=== PATIENT | female | born 1935 | race Caucasian/White ===

== ENCOUNTER 2016-07-25 12:19 | Inpatient (IN) | payer MEDICARE, OTHER ==
--- NOTE | ~2016-07-25 | HP ---
History And Physical [address] [place]. [address] NAME: ADWOA CARSON : 37 STATUS : ADM IN [facility]#: [id number] AGE: 80 ADM/REG DATE : 07/25/16 MR#: [id number] REPORT SERV DATE: 07/25/16 DICTATED BY: ARTURO PEARCE JR. DATE: 07/25/16 REPORT STATUS : Draft TRANSCRIBED BY: MODRubina DATE: 07/25/16 DATE OF ADMISSION: 07/25/[address] [facility] TECHNICAL DEVELOPER: Dr. Gagandeep Valdez. EP PHYSICIAN: Dr. Zeeshan Moreno. CHIEF COMPLAINT: Chest pain, shortness of breath, new left pneumothorax, status post permanent pacemaker insertion yesterday morning. HISTORY OF PRESENT ILLNESS: A 80-year-old white female with recent diagnosis of sick sinus syndrome in the setting of paroxysmal atrial fibrillation, chronic left bundle-branch block, hypertension, chronic back pain (Pain Clinic), chronic Coumadin anticoagulation with INR approximately 2.3 yesterday. No complications from pacemaker insertion yesterday morning. Postprocedure, chest x-ray showed pneumothorax, but last night the patient had some left lateral chest pain and shortness of breath, which intensified this morning and she came to the emergency room, where new pneumothorax was present on the left. Pacemaker pocket looks fine. Hypertensive. PAST MEDICAL HISTORY: See previous H and P. MEDICATION: List reviewed. ALLERGIES: LIST REVIEWED. SOCIAL HISTORY: Chronic morphine administered by pain clinic for chronic back pain etc. No illicit drugs. FAMILY HISTORY: Noncontributory. PHYSICAL EXAMINATION: VITAL SIGNS: Initial blood pressure 229/105, pulse is 82 and regular, respirations 24, afebrile. HEENT: No xanthelasma. NECK: No JVD at 30 degrees, no thyromegaly, no carotid bruit. LUNGS: Clear to auscultation and percussion. COR: No thrills, heaves, normal S1, S2. No gallop. No rub. Grade 1 systolic murmur. ABD: Soft, nontender, no hepatosplenomegaly, no mass. EXT: Without edema or pulse deficit. MS: Back without spine or costovertebral angle tenderness. NEURO: Symmetric findings. IMPRESSION: New left pneumothorax with shortness of breath and left lateral chest pain. Hypertension. Sick sinus syndrome with insertion of permanent pacemaker yesterday morning with initial postprocedure chest x-ray showing no pneumothorax at that time. History And Physical [address] [place]. [address] NAME: ADWOA CARSON : 37 STATUS : ADM IN PAT#: [id number] AGE: 80 ADM/REG DATE : 07/25/16 MR#: [id number] REPORT SERV DATE: 07/25/16 DICTATED BY: ARTURO PEARCE JR. DATE: 07/25/16 REPORT STATUS : Draft TRANSCRIBED BY: KANDACE DATE: 07/25/16 PLAN: Discussed with Dr. Moreno. We will consult Dr. Ny, Interventional Radiology to consider small left chest tube drainage of pneumo if he is willing to accept the current INR, which is pending at the time of dictation. Suspect there will be therapeutic range since it was approximately 2.3 yesterday. Monitor bed. Provide adequate analgesia and treat hypertension. TOLU/KANDACE Arturo Pearce Jr., M.D. / [id number] CC: Cassie Holley M.D.
--- NOTE | ~2016-07-25 | DS ---
Discharge Summary [facility] [address] [place] [place]. [address] NAME: ADWOA CARSON : 37 STATUS : DIS IN PAT#: [id number] AGE: 80 ADM/REG DATE : 07/25/16 MR#: [id number] REPORT SERV DATE: 08/09/16 DICTATED BY: GAGANDEEP CARDENAS DATE: 08/08/16 REPORT STATUS : Draft TRANSCRIBED BY: KANDACE DATE: 08/08/16 Data Collection from hospitalization DISCHARGE DIAGNOSES: 1. Pneumothorax. 2. Paroxysmal atrial fibrillation. 3. Sick sinus syndrome. 4. Hypertension. CONSULTATIONS: None. PROCEDURES PERFORMED: 1. CT-guided chest tube placement, 07/25/2016. 2. CT scan of the chest without contrast, 07/27/2016. 3. CTA of the chest, 07/28/2016. MEDICATIONS: Tenormin 50 mg twice a day, QVAR two puffs via inhaler twice a day, vitamin D3 2000 units every morning, Catapres 0.05-0.1 mg twice a day as needed, Bentyl 10 mg daily as needed, Cardura 0.5 mg at bedtime as needed, flecainide as instructed, fluorometholone one drop twice a day as needed, Apresoline as instructed, Dilaudid 2 mg every four hours as needed for three days, Prevacid 30 mg twice a day, Ativan 1 mg four times a day as needed, Cozaar 25 mg twice a day, MS Contin 15 mg every 12 hours as needed, Bactroban nasal ointment one application nasally twice a day for five days, Zofran 8 mg every six hours as needed, MiraLAX powder 9 g every morning, Systane solution one drop twice a day as needed, Xopenex two puffs via inhaler four times a day as needed, Jantoven 2 mg every 48 hours with supper alternating with 3 mg every 48 hours with supper. CONDITION AT DISCHARGE: Stable. DISPOSITION: The patient was discharged home on a regular diet with activities as instructed. She would follow up with me as scheduled. HOSPITAL COURSE: This is a 80-year-old female who had a recent diagnosis of sick sinus syndrome in the setting of paroxysmal atrial fibrillation, chronic left bundle-branch block, hypertension, and chronic back pain - seen in the pain clinic, chronic Coumadin anticoagulation with INR approximately 2.3 on the day prior to admission. She had no complications from pacemaker insertion, which had been performed the day prior to this admission. Postprocedure, chest x-ray showed no pneumothorax. During the night, she developed some left lateral chest pain and shortness of breath, which intensified on the morning of this admission and she came to the emergency room. She was found to have a new pneumothorax on the left. Pacemaker pocket looks fine. She was hypertensive. She was admitted to the hospital at this time for further evaluation and treatment. Upon admission, it was felt that she may need to undergo left chest tube drainage of pneumothorax. She underwent CT-guided chest tube insertion. The following day, she did complain of some left-sided chest pain that was severe and pleuritic. Her lungs were clear bilaterally. Coumadin was on hold. Dr. Zeeshan Moreno saw the patient. She was having significant pain. Dilaudid was going to be used. The patient is in pain management. On Discharge Summary [address] [address] NAME: ADWOA CARSON : 37 STATUS : DIS IN PAT#: [id number] AGE: 80 ADM/REG DATE : 07/25/16 MR#: [id number] REPORT SERV DATE: 08/09/16 DICTATED BY: GAGANDEEP CARDENAS DATE: 08/08/16 REPORT STATUS : Draft TRANSCRIBED BY: KANDACE DATE: 08/08/16 the , she still complained of pain in the left shoulder and at the chest tube site. A CTA of the chest was performed. She does have chronic pain on pain management. She has long-standing hypertension. She had worsening control secondary to pain issues. She does have multiple drug allergies. Atenolol was increased. Hydralazine was added. On 07/28/2016, blood pressure was elevated. There was no further pneumothorax. Over the next couple of days, she continued to do well. She still had multiple complaints. Dulcolax was given for constipation. Hydralazine dose was increased. Discharge planning was performed. On 07/30/2016, her blood pressure had decreased. She had no chest pain. Her lungs were clear. Discharge instructions were given. Due to her improved and stable condition, she was discharged home with the above-stated instructions. Information collected by: Masha Villanueva I submit the above information as my discharge summary. TG/MODL Gagandeep Cardenas M.D. / [id number] CC: [place] Azevedo M.D.
[~2016-07-25 12:19] MED LIST: ACCO20 PO; ACCUNEB INH; ALBUTEROL; ASAB PO; ATEN25 PO; ATEN50 PO; ATV1 PO; BENTYL10 PO; CARDU2 PO; CARDURA1 MG PO; CAT1 PO; CYANO1000T PO; DEMADEX5 MG PO; DIL2TAB PO; DIOV160 PO; DIOVAN320 MG PO; DSS PO; DULERA; ELIQUIS 5 MG TAB5 MG PO; ESTRACE VAGIN42.5 GM V; FIORICET OR; FIORICET PO; FLAG500TAB PO; JANTOVEN3 MG PO; L20 PO; LEVAQUIN750 MG PO; LEVSINTAB PO; LIPITOR40 PO; LORTAB 5 PO; MIRALAX POWDER1 PKT PO; MIRALAXPKT PO; MSCONT15 PO; MULTIPLE VIT PO; NORCO1 TA1 PO; OMNICEF300 PO; P20 PO; PERI-COLACE1 TAB PO; PREV15 PO; PREV30 PO; PROTONIX PO; PROVENTSOL INH; Q VAR INH; QVAR; QVAR 80 MCG80 MCG INH; QVAR80 MCG INH; SINGULAIR1 PO; SPIRO25 PO; SYMBICORT 160/41 INH INH; SYSTANE OPH; TAMBO50 PO; ULTRAM50 PO; VERELAN120 MG PO; VERELANPM1 PO; VITAMIN D1000 UNI1 PO; VITAMIN D31000 UNIT PO; XOPEN0.5ML INH; XOPENEX HFA INH; ZOFRAN8 PO; [UNRECOGNIZED DRUG - OTHER]
[2016-07-25 12:47] LABS: BASOPHILS 0.1 %; BASOPHILS ABSOLUTE 0.01 10/3/uL (0.0-0.16); EOSINOPHILS 0.4 %; EOSINOPHILS ABSOLUTE 0.03 10/3/uL (0.0-0.53); HEMATOCRIT 35.2 % (36.0-48.0); HEMOGLOBIN 11.9 g/dL (12.0-16.0); IMMATURE GRANULOCYTES 0.1 %; IMMATURE GRANULOCYTES ABSOLUTE 0.01 10/3/uL (0.0-0.11); LYMPHOCYTES 8.5 %; LYMPHOCYTES ABSOLUTE 0.66 10/3/uL (0.67-4.30); MEAN CORPUS HGB CONC 33.8 g/dL (32.0-36.0); MEAN CORPUSCULAR HEMOGLOB 30.8 pg (26.0-34.0); MEAN CORPUSCULAR VOLUME 91.2 fL (80-100); MEAN PLATELET VOLUME 9.2 fL (9.2-13.0); MONOCYTES 9.9 %; MONOCYTES ABSOLUTE 0.77 10/3/uL (0.21-1.20); NEUTROPHILS ABSOLUTE 6.29 10/3/uL (2.02-8.40); PLATELET COUNT 170 10/3/uL (150-400); RBC DISTRIBUTION WIDTH 15.9 % (12.0-16.0); RED CELL COUNT 3.86 10/6/uL (4.0-5.6)
[2016-07-25 12:49] LABS: ER CBC TAT 0 Hrs 05 Mins; MANUAL DIFF NO %; WHITE BLOOD CELLS 7.8 10/3/uL (4.5-10.5)
[2016-07-25 12:54] LABS: INTERNATIONAL NORMAL RATI 2.2 UNITS (-); PARTIAL THROMBO TIME 33.7 SEC (22.5-37.2); PROTIME (NOT ORD) 23.9 SEC (12.0-14.5)
[2016-07-25 13:04] LABS: BUN (BLOOD UREA NITROGEN) 11 MG/DL (6-23); CHEST PAIN PROFILE TAT 0 Hrs 20 Mins; CHLORIDE, SERUM 96 MMOL/L (96-112); CO2 (CARBON DIOXIDE) 30 MMOL/L (24-34); CREATININE 0.77 MG/DL (0.55-1.02); GFR AFRICAN AMERICAN 85 ML/MIN (>=60); GFR NON AFRICAN AMERICAN 73 ML/MIN (>=60); GLUCOSE, SERUM 100 MG/DL (60-99); POTASSIUM, SERUM 4.7 MMOL/L (3.5-5.3); SODIUM, SERUM 132 MMOL/L (135-148); TROPONIN I 0.06 NG/ML (<0.05)
[2016-07-25] MEDS ORDERED: PREV30 PO (13:12)
[2016-07-25] MEDS ORDERED: ATEN50 PO (13:13)
[2016-07-25] MEDS ORDERED: FLECAINIDE50 MG PO ×2 (13:13)
[2016-07-25] MEDS ORDERED: JANTOVEN3 MG PO (13:14)
[2016-07-25] MEDS ORDERED: JANTOVEN2 MG PO (13:15)
[2016-07-25] MEDS ORDERED: VITAMIN D31000 UNIT PO (13:15)
[2016-07-25] MEDS ORDERED: BENTYL10 PO (13:16)
[2016-07-25] MEDS ORDERED: ZOFRAN8 PO (13:16)
[2016-07-25] MEDS ORDERED: ATV1 PO (13:16)
[2016-07-25] MEDS ORDERED: CAT1 PO (13:17)
[2016-07-25] MEDS ORDERED: DIL2TAB PO (13:21)
[2016-07-25] MEDS ORDERED: MSCONT15 PO (13:23)
[2016-07-25] MEDS ORDERED: CARDURA1 MG PO (13:25)
[2016-07-25] MEDS ORDERED: QVAR80 MCG INH (13:26)
[2016-07-25] MEDS ORDERED: XOPENEX HFA INH (13:27)
[2016-07-25] MEDS ORDERED: MIRALAX POWDER1 PKT PO (13:27)
[2016-07-25] MEDS ORDERED: BACTRONASA NAS (13:29)
[2016-07-25] MEDS ORDERED: FML OPH SUSP5 ML OPH (13:31)
[2016-07-25] MEDS ORDERED: SYSTANE OPH (13:34)
[2016-07-26 05:16] LABS: BASOPHILS 0.6 %; BASOPHILS ABSOLUTE 0.02 10/3/uL (0.0-0.16); EOSINOPHILS 0.9 %; EOSINOPHILS ABSOLUTE 0.03 10/3/uL (0.0-0.53); HEMOGLOBIN 9.9 g/dL (12.0-16.0); IMMATURE GRANULOCYTES 0.3 %; IMMATURE GRANULOCYTES ABSOLUTE 0.01 10/3/uL (0.0-0.11); LYMPHOCYTES 13.4 %; LYMPHOCYTES ABSOLUTE 0.45 10/3/uL (0.67-4.30); MEAN CORPUS HGB CONC 33.1 g/dL (32.0-36.0); MEAN CORPUSCULAR HEMOGLOB 30.2 pg (26.0-34.0); MEAN CORPUSCULAR VOLUME 91.2 fL (80-100); MEAN PLATELET VOLUME 9.7 fL (9.2-13.0); NEUTROPHILS 75.8 %; NEUTROPHILS ABSOLUTE 2.54 10/3/uL (2.02-8.40); RBC DISTRIBUTION WIDTH 15.5 % (12.0-16.0); RED CELL COUNT 3.28 10/6/uL (4.0-5.6)
[2016-07-26 05:19] LABS: HEMATOCRIT 29.9 % (36.0-48.0); PLATELET COUNT 88 10/3/uL (150-400); WHITE BLOOD CELLS 3.4 10/3/uL (4.5-10.5)
[2016-07-26 05:21] LABS: MANUAL DIFF NO %
[2016-07-26 05:25] LABS: INTERNATIONAL NORMAL RATI 1.9 UNITS (-); PROTIME (NOT ORD) 21.5 SEC (12.0-14.5)
[2016-07-26 13:14] LABS: BASOPHILS 0.3 %; BASOPHILS ABSOLUTE 0.01 10/3/uL (0.0-0.16); EOSINOPHILS 1.2 %; EOSINOPHILS ABSOLUTE 0.04 10/3/uL (0.0-0.53); HEMOGLOBIN 9.8 g/dL (12.0-16.0); IMMATURE GRANULOCYTES 0.3 %; IMMATURE GRANULOCYTES ABSOLUTE 0.01 10/3/uL (0.0-0.11); LYMPHOCYTES 12.3 %; LYMPHOCYTES ABSOLUTE 0.42 10/3/uL (0.67-4.30); MEAN CORPUS HGB CONC 33.8 g/dL (32.0-36.0); MEAN CORPUSCULAR HEMOGLOB 30.6 pg (26.0-34.0); MEAN CORPUSCULAR VOLUME 90.6 fL (80-100); MEAN PLATELET VOLUME 9.5 fL (9.2-13.0); MONOCYTES ABSOLUTE 0.41 10/3/uL (0.21-1.20); NEUTROPHILS 73.9 %; NEUTROPHILS ABSOLUTE 2.52 10/3/uL (2.02-8.40); RBC DISTRIBUTION WIDTH 15.7 % (12.0-16.0); WHITE BLOOD CELLS 3.4 10/3/uL (4.5-10.5)
[2016-07-26 13:21] LABS: MANUAL DIFF NO %; PLATELET COUNT 133 10/3/uL (150-400)
[2016-07-27 00:35] LABS: BASOPHILS 0.9 %; BASOPHILS ABSOLUTE 0.03 10/3/uL (0.0-0.16); EOSINOPHILS 2.4 %; EOSINOPHILS ABSOLUTE 0.08 10/3/uL (0.0-0.53); LYMPHOCYTES 17.7 %; LYMPHOCYTES ABSOLUTE 0.58 10/3/uL (0.67-4.30); MEAN CORPUS HGB CONC 33.2 g/dL (32.0-36.0); MEAN CORPUSCULAR HEMOGLOB 30.4 pg (26.0-34.0); MEAN CORPUSCULAR VOLUME 91.4 fL (80-100); MEAN PLATELET VOLUME 9.9 fL (9.2-13.0); MONOCYTES 13.4 %; MONOCYTES ABSOLUTE 0.44 10/3/uL (0.21-1.20); NEUTROPHILS 65.6 %; NEUTROPHILS ABSOLUTE 2.15 10/3/uL (2.02-8.40); PLATELET COUNT 146 10/3/uL (150-400); RBC DISTRIBUTION WIDTH 15.5 % (12.0-16.0); RED CELL COUNT 3.62 10/6/uL (4.0-5.6); WHITE BLOOD CELLS 3.3 10/3/uL (4.5-10.5)
[2016-07-27 00:37] LABS: HEMATOCRIT 33.1 % (36.0-48.0); MANUAL DIFF NO %
[2016-07-27 06:35] LABS: BASOPHILS 0.9 %; BASOPHILS ABSOLUTE 0.03 10/3/uL (0.0-0.16); EOSINOPHILS 2.7 %; EOSINOPHILS ABSOLUTE 0.09 10/3/uL (0.0-0.53); HEMOGLOBIN 10.4 g/dL (12.0-16.0); IMMATURE GRANULOCYTES 0.3 %; IMMATURE GRANULOCYTES ABSOLUTE 0.01 10/3/uL (0.0-0.11); LYMPHOCYTES 16.5 %; LYMPHOCYTES ABSOLUTE 0.56 10/3/uL (0.67-4.30); MEAN CORPUS HGB CONC 32.5 g/dL (32.0-36.0); MEAN CORPUSCULAR VOLUME 92.2 fL (80-100); MEAN PLATELET VOLUME 10.1 fL (9.2-13.0); MONOCYTES 19.2 %; MONOCYTES ABSOLUTE 0.65 10/3/uL (0.21-1.20); NEUTROPHILS 60.4 %; NEUTROPHILS ABSOLUTE 2.05 10/3/uL (2.02-8.40); PLATELET COUNT 134 10/3/uL (150-400); RBC DISTRIBUTION WIDTH 15.7 % (12.0-16.0); RED CELL COUNT 3.47 10/6/uL (4.0-5.6); WHITE BLOOD CELLS 3.4 10/3/uL (4.5-10.5)
[2016-07-27 06:41] LABS: MANUAL DIFF NO %
[2016-07-27 06:50] LABS: BUN (BLOOD UREA NITROGEN) 10 MG/DL (6-23); CHLORIDE, SERUM 98 MMOL/L (96-112); CO2 (CARBON DIOXIDE) 26 MMOL/L (24-34); CREATININE 0.68 MG/DL (0.55-1.02); GFR AFRICAN AMERICAN 96 ML/MIN (>=60); GFR NON AFRICAN AMERICAN 83 ML/MIN (>=60); GLUCOSE, SERUM 84 MG/DL (60-99); POTASSIUM, SERUM 4.1 MMOL/L (3.5-5.3); SODIUM, SERUM 131 MMOL/L (135-148)
[2016-07-28 06:26] LABS: HEMATOCRIT 29.6 % (36.0-48.0); HEMOGLOBIN 9.9 g/dL (12.0-16.0); MEAN CORPUS HGB CONC 33.4 g/dL (32.0-36.0); MEAN CORPUSCULAR HEMOGLOB 29.9 pg (26.0-34.0); PLATELET COUNT 127 10/3/uL (150-400); RBC DISTRIBUTION WIDTH 15.6 % (12.0-16.0); RED CELL COUNT 3.31 10/6/uL (4.0-5.6); WHITE BLOOD CELLS 2.8 10/3/uL (4.5-10.5)
[2016-07-28 06:30] LABS: MANUAL DIFF YES %; MEAN CORPUSCULAR VOLUME 89.4 fL (80-100)
[2016-07-28 07:01] LABS: POTASSIUM, SERUM 3.9 MMOL/L (3.5-5.3); SODIUM, SERUM 127 MMOL/L (135-148)
[2016-07-28 07:14] LABS: BUN (BLOOD UREA NITROGEN) 13 MG/DL (6-23); CALCIUM, SERUM 9.1 MG/DL (8.5-10.4); CHLORIDE, SERUM 92 MMOL/L (96-112); CO2 (CARBON DIOXIDE) 26 MMOL/L (24-34); CREATININE 0.99 MG/DL (0.55-1.02); GFR AFRICAN AMERICAN 63 ML/MIN (>=60); GFR NON AFRICAN AMERICAN 54 ML/MIN (>=60); GLUCOSE, SERUM 112 MG/DL (60-99)
[2016-07-28 07:23] LABS: LYMPHOCYTES 17 %; LYMPHOCYTES ABSOLUTE (CALC) 0.48 10/3/uL (0.67-4.30); MONOCYTES 10 %; MONOCYTES ABSOLUTE (CALC) 0.28 10/3/uL (0.21-1.20); NEUTROPHILS ABSOLUTE (CALC) 2.04 10/3/uL (2.02-8.40); PLATELET ESTIMATE SLT DEC (ADEQUATE); RBC MORPHOLOGY NORM (NORMAL); SEGMENTED NEUTROPHIL (0) 73 %; TOTAL NUCLEATED CELLS 100
[2016-07-29 08:47] LABS: INTERNATIONAL NORMAL RATI 1.6 UNITS (-); PROTIME (NOT ORD) 18.7 SEC (12.0-14.5)
[2016-07-30 04:03] LABS: CALCIUM, SERUM 8.6 MG/DL (8.5-10.4); CHLORIDE, SERUM 96 MMOL/L (96-112); CO2 (CARBON DIOXIDE) 29 MMOL/L (24-34); CREATININE 0.66 MG/DL (0.55-1.02); GFR AFRICAN AMERICAN 97 ML/MIN (>=60); GFR NON AFRICAN AMERICAN 84 ML/MIN (>=60); GLUCOSE, SERUM 98 MG/DL (60-99); POTASSIUM, SERUM 3.9 MMOL/L (3.5-5.3); SODIUM, SERUM 130 MMOL/L (135-148)
[2016-07-30 04:05] LABS: BUN (BLOOD UREA NITROGEN) 8 MG/DL (6-23)
[2016-07-30 04:14] LABS: INTERNATIONAL NORMAL RATI 2.4 UNITS (-); PROTIME (NOT ORD) 25.8 SEC (12.0-14.5)
[2016-07-30] MEDS ORDERED: COZ25 PO (13:01)
[2016-07-30] MEDS ORDERED: APRES25 (13:04)
== END 2016-07-30 13:55 | disposition home or self-care (01) | DRG 201 ==
LOC: ER 12:19 → 6NO 14:22
PROVIDERS: Emergency Medicine; Internal Medicine; Internal Medicine Cardiovascular Disease
PROC: 0W9B30Z Drainage of Left Pleural Cavity with Drainage Device, Percutaneous Approach (ICD-10-PCS; principal; 2016-07-25)
PROC: 30233K1 Transfusion of Nonautologous Frozen Plasma into Peripheral Vein, Percutaneous Approach (ICD-10-PCS; 2016-07-25)
PROC: 0JH606Z Insertion of Pacemaker, Dual Chamber into Chest Subcutaneous Tissue and Fascia, Open Approach (ICD-10-PCS; 2016-07-25)
PROC: 02HK3JZ Insertion of Pacemaker Lead into Right Ventricle, Percutaneous Approach (ICD-10-PCS; 2016-07-25)
PROC: 02H63JZ Insertion of Pacemaker Lead into Right Atrium, Percutaneous Approach (ICD-10-PCS; 2016-07-25)
DX: J93.9 Pneumothorax, unspecified (principal); I49.5 Sick sinus syndrome; I48.0 Paroxysmal atrial fibrillation; I44.7 Left bundle-branch block, unspecified; I10 Essential (primary) hypertension; G89.18 Other acute postprocedural pain; Y83.1 Surgical operation with implant of artificial internal device as the cause of abnormal reaction of the patient, or of later complication, without mention of misadventure at the time of the procedure; J44.9 Chronic obstructive pulmonary disease, unspecified; Y71.3 Surgical instruments, materials and cardiovascular devices (including sutures) associated with adverse incidents; I16.0 Hypertensive urgency; G89.29 Other chronic pain; M81.0 Age-related osteoporosis without current pathological fracture; M19.90 Unspecified osteoarthritis, unspecified site; M54.9 Dorsalgia, unspecified; K44.9 Diaphragmatic hernia without obstruction or gangrene; K59.00 Constipation, unspecified; K21.9 Gastro-esophageal reflux disease without esophagitis; Z79.01 Long term (current) use of anticoagulants; Z79.891 Long term (current) use of opiate analgesic; Z90.710 Acquired absence of both cervix and uterus; Z87.01 Personal history of pneumonia (recurrent)
CPT/HCPCS: 32557; 33208; 36415; 71010; 71020; 71250; 71275; 80048; 82272; 83735; 84484; 85025; 85379; 85610; 85730; 86900; 86901; 93005; 94640; 96374; 99285; A9270-GY; C1769; C1785; C1892; C1898; J0360; J0690; J1170; J2250; J2405; J2440; J3010; P9017; P9045; Q9967